=== PATIENT | male | born 1975 | race Caucasian/White ===

== ENCOUNTER → 2016-12-18 | Day surgery (SDC) | payer OTHER ==
[~2016-12-18] MED LIST: ALPRAZOLAM1 MG PO; BENZONATATE PO; CYMBALTA PO; DESYREL50 MG PO; DOLOBID500 MG PO; LORTAB 101 TAB 10/5 DOB; MELATONIN1 MG PO; NORCO 10/325 TA1 TAB; NORFLEX100 M1 PO; PRAZOSIN HCL2 MG PO; PREDNISONE10 MG/DOSE PO; PROMETHAZINE D118 ML PO; PROTONIX PO; SKELAXIN PO; VOLTAREN50 MG PO; ZITHROMAX PO; ZITHROMAX1 G/PKT PO
--- NOTE | ~2016-12-18 | OR ---
Unit #: [id number] #: [id number] Patient: MARILUZ HARDIN [id number] [address] [place], [place] [address] [id number] MR#: [id number] NAME: MARILUZ HARDIN. ROOM: Date of Procedure: 12/18/2016 Admission Date: 12/18/2016 Surgeon: Juan Jose Tinoco M.D. : 1975 Attending Physician: Juan Jose Tinoco M.D. Referring Physician: Juan Jose Tinoco M.D. Primary Care Physician: Davis Umanzor M.D. OPERATIVE REPORT PROCEDURES PERFORMED Esophagogastroduodenoscopy with biopsies; colonoscopy with biopsy. INDICATIONS The patient with persistent diarrhea, blood in stool, nausea, vomiting, and GERD symptoms. He has a history of apparently ulcerative colitis 10 years ago and has not been treated in between. MEDICATIONS Monitored anesthesia. POSTOPERATIVE FINDINGS 1. Small hiatal hernia. 2. Moderate gastritis diffusely, biopsies taken. 3. Duodenitis involving bulb as well as descending duodenum, biopsies taken. 4. Colonoscopy completed to cecum and terminal ileum. No evidence of any active colitis was seen. 5. Terminal ileum was normal. 6. There was some scarring in the right side of the colon, suggestive of possible previous ulceration and inflammation. Multiple biopsies were taken randomly from the entire colon. 7. Prep was poor. Some areas were not well visualized. Small polyp could have been missed. PLAN Follow up on the pathology reports. Pantoprazole and reflux precautions for now. Diet discussed. DESCRIPTION OF PROCEDURE The patient was explained of the procedure, risks, and benefits along with the risks and benefits of anesthesia. He was brought to the endoscopy room. Propofol anesthesia was given. Bite block was placed. The scope was passed down the mouth and esophagus, stomach, duodenum, and distal duodenum. Findings as described. Biopsies were taken in multiple places. Gently, the scope was pulled out. He tolerated it well. No major complications were seen. At this time, he was turned around and repositioned for colonoscopy. Rectal exam was done, which was normal. Colonoscope was lubricated, passed up the rectum, advanced under direct vision all the way to the cecum. Cecum was identified by ileocecal valve and appendiceal orifice. Unit #: [id number] #: [id number] Patient: MARILUZ HARDIN Terminal ileum was intubated, shows normal mucosa. Colonic mucosa was normal. Random biopsies were taken. Some areas were not well visualized because of poor prep. I retroflexed in the rectum, small hemorrhoids seen. Scope was gently pulled out. He tolerated it well. No major complications were seen. Dictated by... Michalea Marquez/sabino TD: 12/19/2016 02:02 JOB #: [id number] OPERATIVE REPORT Page 1 of 1 X Juan Jose Tinoco MD X PROCEDURE OPERATIVE NOTE
== END | disposition home or self-care (01) ==
LOC: COPS 06:59
DX: K29.80 Duodenitis without bleeding (principal); K29.50 Unspecified chronic gastritis without bleeding; K44.9 Diaphragmatic hernia without obstruction or gangrene; K64.9 Unspecified hemorrhoids; J44.9 Chronic obstructive pulmonary disease, unspecified; F17.210 Nicotine dependence, cigarettes, uncomplicated; Z90.49 Acquired absence of other specified parts of digestive tract; Z98.52 Vasectomy status; Z87.19 Personal history of other diseases of the digestive system; Z88.0 Allergy status to penicillin; Z79.899 Other long term (current) drug therapy
CPT/HCPCS: 88305; 88312